=== PATIENT | male | born 1990 | race African-American/Black ===

== ENCOUNTER 2017-04-14 11:04 | Emergency (ER) | payer MEDICAID ==
[~2017-04-14] VITALS: Ht 154.9 cm; Wt 56.0 kg
[~2017-04-14 11:04] MED LIST: METH36TA
[2017-04-14 12:28] VITALS: BP 93/63
[2017-04-14] MEDS ORDERED: HYDROCODONE/ACETAMINOPHEN 5/325MG TABLET PO PRN (12:30)
[2017-04-14] MEDS ORDERED: ONDANSETRON 4MG ODT PO ONE (12:30)
== END 2017-04-14 16:20 | disposition home or self-care (01) ==
LOC: ER 12:40
DX: S39.012A Strain of muscle, fascia and tendon of lower back, initial encounter (principal); S16.1XXA Strain of muscle, fascia and tendon at neck level, initial encounter; V49.49XA Driver injured in collision with other motor vehicles in traffic accident, initial encounter; Y93.89 Activity, other specified; Y92.410 Unspecified street and highway as the place of occurrence of the external cause; M41.9 Scoliosis, unspecified; Z98.890 Other specified postprocedural states
CPT/HCPCS: 72070; 72110; 72125; 99284; Q0162

== ENCOUNTER 2024-07-08 15:55 | Emergency (ER) | payer MEDICAID ==
[~2024-07-08] VITALS: Ht 154.9 cm; Wt 52.2 kg
[2024-07-08 16:03] VITALS: O2SAT 97
[2024-07-08 16:13] VITALS: BP 98/55; PULSE 51; TEMP 98.3; O2SAT 100
[2024-07-08] MEDS ORDERED: CEPH500T MT (17:35)
== END 2024-07-08 16:00 | disposition home or self-care (01) ==
LOC: ER 15:55
DX: M79.645 Pain in left finger(s) (principal); F12.90 Cannabis use, unspecified, uncomplicated
CPT/HCPCS: 99283